=== PATIENT | female | born 1960 | race Caucasian/White ===

== ENCOUNTER 2016-12-21 20:23 | Emergency (ER) | payer MEDICAID ==
[~2016-12-21 20:23] MED LIST: FLUO20CA36 PO
--- NOTE | 2016-12-21 20:39 | NUR ---
CALLED FOR TRIAGE; INFORMED BY ADMITTING "SHE LEFT"
== END 2016-12-21 20:40 | disposition left against medical advice (07) ==
LOC: ER 20:26
DX: Z53.21 Procedure and treatment not carried out due to patient leaving prior to being seen by health care provider (principal)

== ENCOUNTER 2017-02-04 01:25 | Emergency (ER) | payer MEDICAID ==
[~2017-02-04] VITALS: Ht 165.1 cm; Wt 56.7 kg
--- NOTE | 2017-02-04 01:42 | NUR ---
PT A/OX4 BREATHING EFFORTLESSLY ON ROOM AIR, PT STATES SHE HAS BEEN HVAING A RASH ON HER THROAT X 12 HOURS, PT DENIES ANY PROBLEMS BREATHING OR THROAT CLOSING, PT ON MONITOR, IN GOWN MADE AWARE WILL CONTINUE TO MONITOR.
[2017-02-04] MEDS ORDERED: FAMOTIDINE (20 MG) 20 MG TABLET ONE (02:25)
[2017-02-04] MEDS ORDERED: DEXAMETHASONE SOD PHOSPHATE 10 MG/ML VIAL ONE (02:25)
[2017-02-04] MEDS ORDERED: diphenhydrAMINE HCL 50 MG CAPSULE ONE (02:26)
[2017-02-04] MEDS ORDERED: DEXAMETHASONE SOD PHOSPHATE 4 MG/ML VIAL IV ONE (02:30)
[2017-02-04] MEDS ORDERED: diphenhydrAMINE HCL 25 MG CAPSULE PO ONE (02:30)
[2017-02-04] MEDS ORDERED: FAMOTIDINE (20 MG) 20 MG TABLET PO ONE (02:30)
== END 2017-02-04 03:17 | disposition home or self-care (01) ==
LOC: ER 01:27
DX: L50.0 Allergic urticaria (principal); F32.9 Major depressive disorder, single episode, unspecified; F17.200 Nicotine dependence, unspecified, uncomplicated; Z88.0 Allergy status to penicillin; Z88.5 Allergy status to narcotic agent
CPT/HCPCS: A4606; J1100; Q0163; Z7610

== ENCOUNTER 2017-02-09 01:22 | Emergency (ER) | payer SELFPAY ==
[~2017-02-09] VITALS: Ht 165.1 cm; Wt 63.5 kg
[2017-02-09 02:04] VITALS: BP 137/85
== END 2017-02-09 02:13 | disposition home or self-care (01) ==
LOC: ER 01:25
DX: T78.40XA Allergy, unspecified, initial encounter (principal); F32.9 Major depressive disorder, single episode, unspecified; Z88.0 Allergy status to penicillin; F17.210 Nicotine dependence, cigarettes, uncomplicated; Z76.0 Encounter for issue of repeat prescription; Y92.89 Other specified places as the place of occurrence of the external cause
CPT/HCPCS: A4606; Z7610

== ENCOUNTER 2018-01-14 18:06 | Emergency (ER) | payer SELFPAY ==
[~2018-01-14] VITALS: Ht 165.1 cm; Wt 54.0 kg
[2018-01-14 19:07] VITALS: BP 103/73
[2018-01-14] MEDS ORDERED: IBUPROFEN 600 MG TABLET PO ONE ×2 (19:35→20:00)
== END 2018-01-14 21:53 | disposition home or self-care (01) ==
LOC: ER 18:08
DX: M25.532 Pain in left wrist (principal); M25.552 Pain in left hip; F17.200 Nicotine dependence, unspecified, uncomplicated; F32.9 Major depressive disorder, single episode, unspecified; Z88.5 Allergy status to narcotic agent; Z88.0 Allergy status to penicillin; W18.39XA Other fall on same level, initial encounter; Y93.51 Activity, roller skating (inline) and skateboarding; Y92.89 Other specified places as the place of occurrence of the external cause; Y99.8 Other external cause status
CPT/HCPCS: 73110; 73502; A4606; Z7610

== ENCOUNTER 2018-11-13 22:42 | Emergency (ER) | payer SELFPAY ==
[~2018-11-13] VITALS: Ht 165.1 cm; Wt 55.8 kg
--- NOTE | 2018-11-13 23:15 | NUR ---
PT BIBS. COMP OF "FEELING SHORT OF BREATH, HAVING A COUGH AND FEELING CONGESTED" -ACUTE DISTRESS AT THIS TIME. -PAIN. -N/V -DIZZINESS. AWAITING EVAL.
[2018-11-13 23:16] LABS: BASOPHILS % (AUTO) 0.5 % (0.0-2.0); EOSINOPHILS % (AUTO) 5.5 % (0.0-6.0); HEMATOCRIT 37 % (33-45); HEMOGLOBIN 11.9 g/dL (11.5-14.8); LYMPHOCYTES % (AUTO) 19.5 % (20.0-44.0); MEAN CORPUSCULAR HGB CONC 32 g/dl (31.0-36.0); MEAN CORPUSCULAR VOLUME 83 fL (82-100); MONOCYTES # (AUTO) 0.5 /CMM (0.1-1.30); NEUTROPHILS # (AUTO) 3.1 /CMM (1.8-8.9); NEUTROPHILS % (AUTO) 63.5 % (43.0-81.0); PLATELET COUNT (AUTO) 223 /CMM (150-450); RED BLOOD CELL COUNT(AUTO) 4.43 MIL/uL (4.0-5.2); WHITE BLOOD COUNT (AUTO) 4.9 K/uL (4.3-11.0)
[2018-11-13 23:25] LABS: CALCIUM, SERUM 8.9 mg/dL (8.5-10.1); CARBON DIOXIDE 30 mmol/L (21-32); CHLORIDE 104 mmol/L (98-107); CREATININE 0.8 mg/dL (0.6-1.3); GLUCOSE 116 mg/dL (74-106); POTASSIUM 3.4 mmol/L (3.5-5.1); SODIUM SERUM 140 mmol/L (136-145); UREA NITROGEN, BLOOD 20 mg/dL (7-18)
[2018-11-13 23:38] LABS: ALANINE AMINOTRANSFERASE 22 U/L (12-78); ALBUMIN 3.5 g/dL (3.4-5.0); ALKALINE PHOSPHATASE 89 U/L (46-116); ASPARTATE AMINOTRANSFERASE 18 U/L (15-37); B-TYPE NATRIURETIC PEPTIDE 37 PG/ML (0-125); BILIRUBIN,DIRECT 0.1 mg/dL (0.0-0.2); BILIRUBIN,TOTAL 0.1 mg/dL (0.2-1.0); TOTAL PROTEIN, SERUM 7.2 g/dL (6.4-8.2)
[2018-11-14 00:21] VITALS: BP 126/88
== END 2018-11-14 00:23 | disposition home or self-care (01) ==
LOC: ER 22:46
DX: J06.9 Acute upper respiratory infection, unspecified (principal); F32.9 Major depressive disorder, single episode, unspecified; F17.200 Nicotine dependence, unspecified, uncomplicated; Z98.890 Other specified postprocedural states; Z88.5 Allergy status to narcotic agent; Z88.0 Allergy status to penicillin; Z79.899 Other long term (current) drug therapy
CPT/HCPCS: 36415; 71045-TC; 80048-TC; 80076-TC; 83880; 84484-TC; 85025-TC; 85730-TC; 87400

== ENCOUNTER 2020-07-23 02:25 | Emergency (ER) | payer OTHER ==
[~2020-07-23] VITALS: Ht 165.1 cm; Wt 63.5 kg
[2020-07-23 02:25] VITALS: BP 100/52
--- NOTE | 2020-07-23 02:53 | NUR ---
ROSENDO COLLECTED AND SENT TO LAB
== END 2020-07-23 03:03 | disposition home or self-care (01) ==
LOC: ER 02:25
DX: Z20.828 Contact with and (suspected) exposure to other viral communicable diseases (principal); J02.9 Acute pharyngitis, unspecified; H92.09 Otalgia, unspecified ear; Z88.6 Allergy status to analgesic agent; Z88.0 Allergy status to penicillin
CPT/HCPCS: 99283; C9803; U0003

== ENCOUNTER 2024-12-18 00:49 | Emergency (ER) | payer OTHER | END 2024-12-18 02:05 | disposition left against medical advice (07) | LOC: ER 00:56 | DX: S00.81XA Abrasion of other part of head, initial encounter (principal); Z53.21 Procedure and treatment not carried out due to patient leaving prior to being seen by health care provider; X58.XXXA Exposure to other specified factors, initial encounter; Y93.9 Activity, unspecified; Y92.89 Other specified places as the place of occurrence of the external cause; Y99.8 Other external cause status ==